=== PATIENT | female | born 1965 | race African-American/Black ===

== ENCOUNTER 2022-07-14 11:11 | Emergency (ER) | payer BC ==
[2022-07-14 11:22] VITALS: BP 108/73; PULSE 71; RESP 18; TEMP 97.5; BMI 26.8
[2022-07-14 12:29] LABS: THROAT:GRP A STREP NOT DETECTED (NOTDETECTED)
== END 2022-07-14 13:19 | disposition home or self-care (01) ==
LOC: JER 11:11
DX: R05.1 Acute cough (principal); R09.81 Nasal congestion
CPT/HCPCS: 0241U-QW; 71046-TC-FY; 87651; 99284-25